=== PATIENT | male | born 1950 | race Caucasian/White ===

== ENCOUNTER 2016-12-03 19:10 | Emergency (ER) | payer BC, OTHER ==
[2016-12-03] MEDS ORDERED: Diph,Pert(Acell),Tet Vac 0.5 ML SYR IM ONE (19:36)
--- NOTE | 2016-12-03 19:37 | Emergency Department Record ---
History of Present Illness - General Chief Complaint: Laceration(s) Stated Complaint: LACERATION ON RT HAND Time Seen by Provider: 12/03/16 19:35 Source: Patient Mode of Arrival: Ambulatory Limitations: No limitations - History of Present Illness Initial Commments: 66 yo male presents with a laceration to the right index finger. He is right handed. He injured the finger between the metal frame of two [employer] machines. He is unsure of the last tetanus. No loss of ROM or sensation. 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) Location: Other Place: Home Context: Accidental Associated Symptoms: None Treatments Prior to Arrival: Bandage - Related Data Hx Tetanus Toxoid Vaccination: Yes Year of Tetanus Vaccination: 2008 Patient Tetanus UTD (within 5 yrs): No Home Medications Medication Instructions Recorded Confirmed Last Taken Loratadine [Loratadine] 1 tab PO DAILY 12/03/16 12/03/16 12/03/16 08:00 Metoprolol Tartrate [Metoprolol 1 tab PO BID 12/03/16 12/03/16 12/03/16 Tartrate] Omeprazole [Prilosec] 1 tab PO DAILY 12/03/16 12/03/16 12/03/16 Previous Rx's Medication Instructions Recorded Cephalexin [Keflex] 500 mg PO TID #21 cap 12/03/16 Allergies Allergy/AdvReac Type Severity Reaction Status Date / Time No Known Drug Allergies Allergy Verified 12/03/16 19:23 Travel Screening - Travel/Exposure Within Last 30 Days Have you traveled within the last 30 days?: No - Travel/Exposure Within Last Year Have you traveled outside the [place] in the last year?: No - Additonal Travel Details Have you been exposed to anyone with a communicable illness?: No Past Medical History - SOCIAL HISTORY Smoking Status: Former smoker Alcohol Use: Occasional Drug Use: None - RESPIRATORY Hx Respiratory Disorders: No - CARDIOVASCULAR Hx Cardio Disorders: Yes Hx Irregular Heartbeat: Yes Hx Palpitations: Yes Comment:: SVT - NEURO Hx Neuro Disorders: No - GI Hx GI Disorders: Yes Hx Reflux: Yes - Hx Genitourinary Disorders: No - ENDOCRINE Hx Endocrine Disorders: No - MUSCULOSKELETAL Hx Musculoskeletal Disorders: No - PSYCH Hx Psych Problems: No - HEMATOLOGY/ONCOLOGY Hx Hematology/Oncology Disorders: No Family Medical History Any Significant Family History?: No Physical Exam - General General Appearance: Alert, Oriented x3, Cooperative Limitations: No limitations - Head Head exam: Atraumatic, Normal inspection - Eye Eye exam: Normal appearance. negative: Conjunctival injection - ENT ENT exam: Normal exam, Mucous membranes moist Ear exam: Normal external inspection Nasal Exam: Normal inspection Mouth exam: Normal external inspection - Neck Neck exam: Normal inspection - Respiratory Respiratory exam: Normal lung sounds bilaterally. negative: Respiratory distress - Cardiovascular Cardiovascular Exam: Regular rate, Normal rhythm, Normal heart sounds - Extremities Extremities exam: Full ROM, Other (finger tip laceration). negative: Normal inspection Image of Finger Tip: 1 - flap like laceration, no FB 2 - laceration - Neurological Neurological exam: Alert, Normal gait, Oriented X3. negative: Motor sensory deficit - Skin Type of lesion: Laceration Course Vital Signs 12/03/16 19:15 Temperature 97.9 F Pulse Rate 72 Respiratory 18 Rate Blood Pressure 122/78 Pulse Ox 100 - Reevaluation(s) Reevaluation #1: Digital Block Betadine Prep Lidocaine 1% without epi and Sensorcaine. 4ml 12/03/16 19:37 Reevaluation #2: The XR was reviewed Questionable pin point FB. 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 Based on today's mechanism of a slice on smooth metal this is not likely new. This was explained the patient I explained I do not see any FB on examination The wound was thoroughly cleaned and NO FB visible 12/03/16 20:35 12/03/16 Laceration Repair Betadine Prep Copious NS irrigation No FB in a bloodless field Prolene 4-0 9 Sutures Good wound approximation We discussed home care, reasons to return to the ED, Keflex, and suture removal. Disposition Disposition: Discharge Clinical Impression: Finger laceration Qualifiers: Encounter type: initial encounter Finger: index finger Damage to nail status: without damage Foreign body presence: with foreign body Laterality: right Qualified Code(s): S61.220A - Laceration with foreign body of right index finger without damage to nail, initial encounter Disposition: Home, Self-Care Condition: (1) Good Instructions: Laceration (ED) Additional Instructions: Suture removal in 10 days Return if warm, red, pus, pain swelling or concerns Keep dry and clean Prescriptions: Cephalexin [Keflex] 500 mg PO TID #21 cap Forms: Patient Portal Access Time of Disposition: 20:37 Quality - Quality Measures Quality Measures: N/A - Blood Pressure Screening Does Patient Have Any of the Following: No Blood Pressure Classification: Pre-Hypertensive BP Reading Systolic Measurement: 124 Diastolic Measurement: 58 Screening for High Blood Pressure: < Pre-Hypertensive BP, F/U Documented > [ G8950] Pre-Hypertensive Follow-up Interventions: Referral to alternative/primary care provider.
[2016-12-03] MEDS ORDERED: CEPHALEXIN 500 MG CAPSULE PO STA (20:41)
--- NOTE | 2016-12-06 14:54 | RADIOLOGY REPORT ---
EXAM: RIGHT FOURTH DIGIT HISTORY: LACERATION. TECHNIQUE: Three views of the right fourth digit were performed. FINDINGS: There is diffuse soft tissue swelling. There is suggestion of tiny radiopaque foreign bodies in the palmar soft tissues of the distal phalanx. No evidence of fracture. IMPRESSION: SOFT TISSUE SWELLING WITH LACERATION OF THE DITAL FOURTH PHALANX. THERE IS SUGGESTION OF TINY PUNCTATE FOREIGN BODIES. JOB NUMBER: [id number] [facility]
== END 2016-12-03 20:46 | disposition home or self-care (01) ==
LOC: ER 19:10
DX: S61.220A Laceration with foreign body of right index finger without damage to nail, initial encounter (principal); W26.8XXA Contact with other sharp object(s), not elsewhere classified, initial encounter; Y92.009 Unspecified place in unspecified non-institutional (private) residence as the place of occurrence of the external cause
CPT/HCPCS: 12001; 73140; 90715; 96372; 99283; 99284

== ENCOUNTER 2016-12-14 15:10 | Emergency (ER) | payer OTHER ==
--- NOTE | 2016-12-14 15:29 | Emergency Department Record ---
History of Present Illness - General Chief Complaint: Suture removal Stated Complaint: REMOVE STITCHES Time Seen by Provider: 12/14/16 15:13 Source: Patient Mode of arrival: Ambulatory Limitations: No limitations - History of Present Illness Initial Comments: 66 yo male presents for suture removal. He lacerated his finger on a sewing machine 11 days ago. He has bumped the area a few times but denies any problems. His tetanus was updated. Complaint: Suture/staple removal Onset/Timin -: Days(s) Initial Visit For: Laceration Returns Today for: Staple/stitch removal Symptoms Since Prior Visit: No new symptoms Associated Symptoms: None - Related Data Allergies Allergy/AdvReac Type Severity Reaction Status Date / Time No Known Drug Allergies Allergy Verified 12/03/16 19:23 Travel Screening - Travel/Exposure Within Last 30 Days Have you traveled within the last 30 days?: No - Travel/Exposure Within Last Year Have you traveled outside the [place] in the last year?: No - Additonal Travel Details Have you been exposed to anyone with a communicable illness?: No - Travel Symptoms Symptom Screening: None Review of Systems Constitutional: Denies: Chills, Fever, Malaise, Weakness Eyes: Denies: Eye discharge ENT: Denies: Congestion, Throat pain Respiratory: Denies: Cough Cardiovascular: Denies: Chest pain Endocrine: Denies: Fatigue Gastrointestinal: Denies: Diarrhea, Nausea, Vomiting Genitourinary: Denies: Dysuria, Frequency, Urgency Musculoskeletal: Denies: Arthralgia, Joint swelling, Myalgia Skin: Reports: As per HPI, Other. Denies: Bruising, Change in color, Rash Neurological: Denies: Headache Psychiatric: Denies: Anxiety Hematological/Lymphatic: Denies: Blood Clots, Easy bleeding, Easy bruising Past Medical History - SOCIAL HISTORY Smoking Status: Former smoker Alcohol Use: None Drug Use: None - RESPIRATORY Hx Respiratory Disorders: No - CARDIOVASCULAR Hx Cardio Disorders: Yes Hx Irregular Heartbeat: Yes Hx Palpitations: Yes Comment:: SVT - NEURO Hx Neuro Disorders: No - GI Hx GI Disorders: Yes Hx Reflux: Yes - Hx Genitourinary Disorders: No - ENDOCRINE Hx Endocrine Disorders: No - MUSCULOSKELETAL Hx Musculoskeletal Disorders: No - PSYCH Hx Psych Problems: No - HEMATOLOGY/ONCOLOGY Hx Hematology/Oncology Disorders: No Family Medical History Any Significant Family History?: No Physical Exam - General General Appearance: Alert, Oriented x3, Cooperative, No acute distress - Head Head exam: Normal inspection - Eye Eye exam: Normal appearance, PERRL - ENT ENT exam: Normal exam Ear exam: Normal external inspection Nasal Exam: Normal inspection - Neck Neck exam: Normal inspection - Cardiovascular Peripheral Pulses: 2+: Radial (R) - Extremities Extremities exam: Normal inspection Image of Finger Tip: 1 - healing finger tip laceration, no warmth, redness, or drainage, the sutures are intact, the flap like laceration appears viable at this point - Neurological Neurological exam: Alert, Oriented X3 - Psychiatric Psychiatric exam: Normal affect, Normal mood - Skin Skin exam: Dry, Intact, Normal color, Warm Course Vital Signs 12/14/16 15:15 Temperature 98.2 F Pulse Rate 67 Respiratory 16 Rate Blood Pressure 125/75 Pulse Ox 96 - Reevaluation(s) Reevaluation #1: The sutures were removed without difficulty The area was cleaned with soap and water and dried Steri Strips were placed for additional support We discussed home care of steri strips and reasons to return to the ED 12/14/16 15:38 Disposition Disposition: Discharge Clinical Impression: Encounter for removal of sutures Disposition: Home, Self-Care Condition: (1) Good Instructions: Stitches Removal (ED) Additional Instructions: Try to have the steri strips remain in place for 5-7 days Keep dry and clean Return if you have any concerns about the ongoing healing. Forms: Patient Portal Access Time of Disposition: 15:29 Quality - Quality Measures Quality Measures: N/A - Blood Pressure Screening Does Patient Have Any of the Following: No Blood Pressure Classification: Pre-Hypertensive BP Reading Systolic Measurement: 125 Diastolic Measurement: 75 Screening for High Blood Pressure: < Pre-Hypertensive BP, F/U Documented > [ G8950] Pre-Hypertensive Follow-up Interventions: Referral to alternative/primary care provider.
== END 2016-12-14 15:37 | disposition home or self-care (01) ==
LOC: ER 15:10
DX: Z48.02 Encounter for removal of sutures (principal)